=== PATIENT | male | born 1985 | race Caucasian/White ===

== ENCOUNTER 2016-10-22 19:36 | Emergency (ER) | payer SELFPAY ==
[2016-10-22] MEDS ORDERED: LORAZEPAM 1 MG TABLET PO ONE (22:46)
--- NOTE | 2016-10-22 22:48 | ER Document Report ---
HPI - HPI Patient complains to provider of: Anxiety Pain Level: Denies Context: Patient is a 30-year-old male that comes emergency department for chief complaint of anxiety, he states that he is visiting the area with his family, he was supposed to return in 2 weeks, however he cannot find his medications, he is not sure if they were misplaced or stolen, he states she is normally on citalopram, Seroquel, Xanax. He takes Xanax 3 times a day. He states he contacted his psychiatrist in [place], the set up an appointment for him in 1 week for him to have refills, he states he is going home prematurely because of this, however he states that they told him that he might have benzodiazepine withdrawals and he is concerned about this. He denies vomiting, he states his heart rate fell elevated earlier and he is having trouble keeping calm but he denies any other symptoms. He denies SI or HI. He denies history of suicidal attempt. - DERM Skin Color: Normal, [place] <[employer] - Last Filed: 10/23/16 06:10> Past Medical History - General Information source: Patient - Social History Smoking Status: Never Smoker Frequency of alcohol use: Occasional Drug Abuse: None Lives with: Family Family History: Reviewed & Not Pertinent Patient has suicidal ideation: No Patient has homicidal ideation: No Renal/ Medical History: Denies: Hx Peritoneal Dialysis Psychiatric Medical History: Reports: Hx Anxiety, Hx Depression, Other - panic attacks Surgical Hx: Negative - Immunizations Immunizations up to date: Yes <[employer] - Last Filed: 10/23/16 06:10> Vertical Provider Document - CONSTITUTIONAL General Appearance: Other - Patient talks rapidly and appears mildly nervous but he is not in any distress - INFECTION CONTROL TRAVEL OUTSIDE OF THE [place] IN LAST 30 DAYS: No - HEENT HEENT: Atraumatic, Normocephalic - NECK Neck: Normal Inspection - RESPIRATORY Respiratory: Breath Sounds Normal, No Respiratory Distress O2 Sat by Pulse Oximetry: 100 - CARDIOVASCULAR Cardiovascular: Regular Rate, Regular Rhythm - GI/ABDOMEN Gastrointestinal: Abdomen Soft, Abdomen Non-Tender - BACK Back: Normal Inspection - MUSCULOSKELETAL/EXTREMETIES Musculoskeletal/Extremeties: MAEW, FROM, Non-Tender - NEURO Level of Consciousness: Awake, Alert, Appropriate Motor/Sensory: No Motor Deficit, No Sensory Deficit - DERM Integumentary: Warm, Dry, No Rash <[employer] - Last Filed: 10/23/16 06:10> Course - Re-evaluation Re-evalutation: Patient talks rapidly, frequently paces, however his physical examination is unremarkable, his vital signs are unremarkable. Given a dose of Ativan. Patient will be given a limited amount of Ativan to help him get to his appointment and avoid benzodiazepine withdrawal, discussed with patient return precautions, patient states gratefulness, states gratefulness. - Vital Signs Vital signs: Temp Pulse Resp BP Pulse Ox 98.4 F 85 16 145/90 H 100 10/22/16 19:40 10/22/16 19:40 10/22/16 19:40 10/22/16 19:40 10/22/16 19:40 <[employer] - Last Filed: 10/23/16 06:10> - Vital Signs Vital signs: Temp Pulse Resp BP Pulse Ox 97.7 F 92 18 144/91 H 100 10/22/16 23:04 10/22/16 23:04 10/22/16 23:04 10/22/16 23:04 10/23/16 06:14 <NICHOLAS ALMARAZ - Last Filed: 11/01/16 09:21> Discharge <[employer] - Last Filed: 10/23/16 06:10> <NICHOLAS ALMARAZ - Last Filed: 11/01/16 09:21> - Discharge Clinical Impression: Anxiety, Benzodiazepine dependence Condition: Stable Disposition: HOME, SELF-CARE Additional Instructions: Please follow-up with your appointment with your psychiatrist in 1 week. Take the medication as prescribed if needed. Return to emergency department for any concerning symptoms or if something is not right. Prescriptions: Lorazepam [Ativan 1 mg Tablet] 1 mg PO Q4 PRN #15 tab PRN Reason:
[2016-10-22 23:07] VITALS: BP 144/91
== END 2016-10-22 23:08 | disposition home or self-care (01) ==
LOC: ER 19:36
DX: F41.9 Anxiety disorder, unspecified (principal); F13.20 Sedative, hypnotic or anxiolytic dependence, uncomplicated
CPT/HCPCS: 99281